=== PATIENT | female | born 1955 | race Caucasian/White ===

== ENCOUNTER 2021-10-26 12:33 | Inpatient (IN) | payer MEDICARE, OTHER ==
[~2021-10-26] VITALS: Ht 162.6 cm; Wt 68.0 kg
[2021-10-26] MEDS ORDERED: VITAMIN B12 (12:50)
[2021-10-26] MEDS ORDERED: METO-356 PO (12:50)
[2021-10-26] MEDS ORDERED: FOLI1TAB94 PO (12:50)
[2021-10-26] MEDS ORDERED: LORA10TA7 PO (12:50)
[2021-10-26] MEDS ORDERED: VITAMIN D3 (12:50)
[2021-10-26] MEDS ORDERED: TELM40TA2 PO (12:50)
[2021-10-26] MEDS ORDERED: LEVO50TA8 PO (12:50)
[2021-10-26] MEDS ORDERED: ESCI20TA PO (12:50)
[2021-10-26] MEDS ORDERED: GLIP5TAB13 PO (12:50)
[2021-10-26] MEDS ORDERED: MECL-159 PO (12:50)
[2021-10-26] MEDS ORDERED: METF-441 PO (12:50)
[2021-10-26] MEDS ORDERED: NITROGLYCERIN 0.4 MG/TAB BOTTLE SL ONE ×2 (13:15→13:37)
[2021-10-26 13:40] LABS: HEMATOCRIT 32.5 % (31.2-41.9); MEAN CORPUSCULAR HEMOGLOBIN 29.9 uug (24.7-32.8); MEAN CORPUSCULAR VOLUME 85.8 fL (75.5-95.3); PLATELET COUNT (AUTO) 80 K/uL (179-408)
--- NOTE | 2021-10-26 13:50 | NUR ---
Pt states pain is 0.5/10, NG held after 1st dose.
[2021-10-26 13:52] LABS: CARBON DIOXIDE 25 mmol/L (21-32); CHLORIDE 102 mmol/L (98-107); CREATININE 0.6 mg/dL (0.6-1.3); GLUCOSE 141 mg/dL (74-106); POTASSIUM 3.7 mmol/L (3.5-5.1); UREA NITROGEN, BLOOD 13 mg/dL (7-18)
--- NOTE | 2021-10-26 14:33 | NUR ---
Nursing broiler supervisor Jamilah, 3rd floor staff Liudmila and ER registration staff Cliff notified re:"Plan to admit" per Dr Soto.
[2021-10-26] MEDS ORDERED: ASPIRIN 325 MG TABLET ONE (15:14)
[2021-10-26] MEDS ORDERED: ACETAMINOPHEN 325 MG TABLET PO ONE (15:15)
[2021-10-26] MEDS ORDERED: ASPIRIN 325 MG TABLET PO ONE (15:15)
--- NOTE | 2021-10-26 16:15 | NUR ---
Loom Tuner assumes care: AOx4, calm & breathing easily, pending accepting hospitalist, telemetry [email or web address] [email or web address]
[2021-10-26] MEDS ORDERED: ACETAMINOPHEN 325 MG TABLET ONE (16:25)
--- NOTE | 2021-10-26 16:44 | NUR ---
REPORT WAS GIVEN TO HARDBOARD COATING MACHINE OPERATOR. PT WAS TRASNSFERED TO TELEMETY ROOM #302.
[2021-10-26 16:50] VITALS: BP 108/63
--- NOTE | 2021-10-26 17:38 | NUR ---
Patient admitted onto unit at 1655 from ER with initial complaints of chest pain. Patient alert, oriented x 4. Patient currently on room air, with no immediate complaints of pain or distress. IV site patent and intact. Patient ambulatory with bathroom privileges. Skin intact. Admission process complete. Yaneth INVESTOR RELATIONS DIRECTOR notified. Vital signs within normal limits. Cardiac diet ordered for patient. Will endorse information to PM nurse.
--- NOTE | 2021-10-26 20:00 | NUR ---
Received patient lying in bed. AAOx4. In no apparent distress. Denies any CP or SOB at this time. NSR on tele with HR of 95/min. IV site on left AC intact and patent. Needs assessed and attended to. Safety measure initiated and call light within reached. Reminded Dr Wolfe still awaiting admission order and states understanding. Addendum: 10/27/21 at 0700 by OLGA BAILEY RN right AC IV site Addendum: 10/27/21 at 0702 by OLGA BAILEY RN LEFT AC IV SITE
[2021-10-26 20:04] VITALS: BP 111/61
[2021-10-26] MEDS ORDERED: ACETAMINOPHEN 325 MG TABLET PO PRN (21:30)
[2021-10-26] MEDS ORDERED: ONDANSETRON 4 MG/2 ML VIAL IV PRN (21:30)
[2021-10-26] MEDS ORDERED: REMEDY ESSENTIAL ZINC PASTE 113 GM TP PRN (21:30)
[2021-10-26] MEDS ORDERED: hydrALAZINE HCL 25 MG TABLET PO PRN (21:30)
[2021-10-26] MEDS ORDERED: DEXTROSE 50% 50 ML DISP.SYRIN IV PRN (21:45)
[2021-10-26] MEDS ORDERED: KETOROLAC TROMETHAMINE 15 MG INJ IVP PRN (21:45)
[2021-10-26] MEDS ORDERED: INSULIN REGULAR, HUMAN 300 UNIT/3 ML VIAL SQ PRN (21:45)
[2021-10-26] MEDS ORDERED: ENOXAPARIN SODIUM 40 MG/0.4 ML DISP.SYRIN SQ SCH (21:55)
--- NOTE | 2021-10-26 22:16 | NUR ---
Dr Wolfe ordered to give patient Lovenox 40mg SQ. Informed Dr Wolfe, patient platelet level with 80. Awaiting for reply if okay to give Lovenox.
--- NOTE | 2021-10-26 22:28 | NUR ---
Dr Wolfe with order to discontinue Lovenox. Order noted and carried out.
[2021-10-27 00:40] VITALS: BP 98/45
[2021-10-27 04:42] VITALS: BP 98/55
--- NOTE | 2021-10-27 06:11 | NUR ---
No complain of CP through out the shift. Slept well during the night. Denies any other pain or SOB. NSR on tele with HR of 85/min. Needs attended to and met.
[2021-10-27] MEDS: BLOOD SUGAR DIAGNOSTIC 1 EACH STRIP VI SCH ×2 (06:36→11:18)
[2021-10-27] MEDS ORDERED: PANTOPRAZOLE SODIUM 40 MG TABLET.DR PO SCH ×2 (07:00→08:00)
[2021-10-27] MEDS ORDERED: LEVOTHYROXINE SODIUM 50 MCG TABLET PO SCH (07:00)
[2021-10-27 07:01] LABS: HEMATOCRIT 32.1 % (31.2-41.9); MEAN CORPUSCULAR HEMOGLOBIN 29.8 uug (24.7-32.8); MEAN CORPUSCULAR VOLUME 87.2 fL (75.5-95.3); PLATELET COUNT (AUTO) 76 K/uL (179-408)
[2021-10-27 07:20] LABS: NEUTROPHILS % (MANUAL) 0 % (42-75)
[2021-10-27 07:23] LABS: ALANINE AMINOTRANSFERASE 25 U/L (14-59); ALKALINE PHOSPHATASE 48 U/L (50-136); ASPARTATE AMINOTRANSFERASE 30 U/L (15-37); CARBON DIOXIDE 24 mmol/L (21-32); CHLORIDE 104 mmol/L (98-107); CHOLESTEROL 153 mg/dL (<200); CREATININE 0.6 mg/dL (0.6-1.3); GLUCOSE 122 mg/dL (74-106); HDL CHOLESTEROL 66 mg/dL (40-60); MAGNESIUM 1.5 mg/dL (1.8-2.4); PHOSPHOROUS 3.1 mg/dL (2.5-4.9); POTASSIUM 3.3 mmol/L (3.5-5.1); TOTAL PROTEIN, SERUM 6.9 g/dL (6.4-8.2); TRIGLYCERIDES 69 MG/DL (30-150); UREA NITROGEN, BLOOD 13 mg/dL (7-18)
[2021-10-27] MEDS ORDERED: glipiZIDE 5 MG TABLET PO SCH (07:30)
[2021-10-27] MEDS ORDERED: POTASSIUM CHLORIDE 20 MEQ TAB.PRT.SR PO ONE (08:00)
[2021-10-27] MEDS ORDERED: POTASSIUM CHLORIDE 20 MEQ POWDER PACKET GT ONE (08:00)
[2021-10-27] MEDS ORDERED: IBUPROFEN 800 MG TABLET PO SCH (08:00)
[2021-10-27] MEDS: MAGNESIUM SULFATE/D5W 100 ML IV SCH ×3 (08:41→10:50)
[2021-10-27] MEDS ORDERED: LORATADINE 10 MG TABLET PO SCH (09:00)
[2021-10-27] MEDS ORDERED: FOLIC ACID 1 MG TABLET PO SCH (09:00)
[2021-10-27] MEDS ORDERED: ESCITALOPRAM OXALATE 10 MG TABLET PO SCH (09:00)
[2021-10-27] MEDS ORDERED: VALSARTAN 80 MG TABLET PO SCH (09:00)
[2021-10-27] MEDS ORDERED: METOPROLOL SUCCINATE XL 25 MG TAB.SR.24H PO SCH (09:00)
[2021-10-27] MEDS: POTASSIUM CHLORIDE 50 ML IV SCH ×2 (11:49→12:43)
[2021-10-27 11:52] VITALS: BP 112/63
--- NOTE | 2021-10-27 14:00 | NUR ---
took over care for patient from nurse Billingsley. Pt is a/o x 4, Indian speaking, no complaint of chest pain or shortness of breath. Plan is to discharge patient home.
--- NOTE | 2021-10-27 15:50 | NUR ---
Pt is now discharged home. Picked up by son in private car. Pt does not complain of any chest pain or SOB, no signs of acute distress. Provided pt with discharge education and materials. All documents signed and personal belongings at hand.Advised to follow up with PCP within one week. IV and ID bands removed. Pt was wheeled down to transportation.
== END 2021-10-27 15:50 | disposition home or self-care (01) | DRG 206 ==
LOC: ER 12:33 → TELE3 16:25
PROVIDERS: ADMIT Nurse Practitioner Acute Care; ATTEND Nurse Practitioner Acute Care
DX: M94.0 Chondrocostal junction syndrome [Tietze] (principal); I31.9 Disease of pericardium, unspecified; U09.9 Post COVID-19 condition, unspecified; E03.9 Hypothyroidism, unspecified; E11.9 Type 2 diabetes mellitus without complications; I10 Essential (primary) hypertension; Z85.3 Personal history of malignant neoplasm of breast; Z87.01 Personal history of pneumonia (recurrent); D69.6 Thrombocytopenia, unspecified; Z79.84 Long term (current) use of oral hypoglycemic drugs; K80.20 Calculus of gallbladder without cholecystitis without obstruction; Z20.822 Contact with and (suspected) exposure to COVID-19; Z92.3 Personal history of irradiation
CPT/HCPCS: 36415; 70030-TC; 70450; 71045; 83735; 84100; 84443; 84484; 85025; 85651; 86140; 93005; 93307; A4663; G0378; J1650; J1815; J3475; J3480; J7040